=== PATIENT | female | born 1975 | race Caucasian/White ===

== ENCOUNTER → 2019-11-18 | Outpatient (CLI) | payer BC ==
--- NOTE | 2019-11-18 14:04 | Diagnostic Imaging Report ---
INDICATION: Pain. Injury. Previous surgery. COMPARISON: None FINDINGS: 3 radiographic views of the right ankle were obtained. There is moderate generalized edema, but greatest laterally. Postsurgical changes of the distal fibula are noted. Metallic anchors are noted within the distal fibula. Faint extraosseous calcification is noted within the soft tissues distal to the fibula and could be on the basis of acute avulsion injury. No other acute osseous abnormality is seen. Joint spaces are maintained. No unexpected radiopaque foreign bodies are seen. IMPRESSION: 1. Asymmetric lateral soft tissue edema with findings suggestive of potential acute avulsion injury. Correlation with prior exams would be of benefit. Dictated by: Dictated on workstation # [id number]
== END ==
LOC: RAD FS 13:40
PROVIDERS: ATTEND Nurse Practitioner
DX: S99.911A Unspecified injury of right ankle, initial encounter (principal); X58.XXXA Exposure to other specified factors, initial encounter; Z98.890 Other specified postprocedural states
CPT/HCPCS: 73610